=== PATIENT | female | born 1985 | race Caucasian/White ===

== ENCOUNTER 2017-09-17 13:48 | Emergency (ER) | payer SELFPAY ==
[2017-09-17 15:31] LABS: Hematocrit 34 % (35-47); Hemoglobin 11.6 g/dl (12.0-16.0); Mean Corpuscular HGB Conc 34 g/dl (31-36); Mean Corpuscular Hemoglobin 31 pg (27-31); Mean Corpuscular Volume 92 fL (80-97); Mean Platelet Volume 7 um3 (7.4-10.4); Red Blood Count 3.75 10^6/ul (4.0-5.4); Red Cell Distribution Width 13 % (10.5-15); Urine Bilirubin Negative (Negative); Urine Glucose Negative (Negative); Urine Nitrite Negative (Negative); White Blood Count 5.8 10^3/ul (3.5-10.8)
[2017-09-17 15:41] LABS: ALT 45 U/L (7-52); AST 27 U/L (13-39); Alkaline Phosphatase 65 U/L (34-104); Anion Gap 4 mmol/L (2-11); BUN/Creatinine Ratio 12.2 (8-20); Blood Urea Nitrogen 9 mg/dL (6-24); CO2 Carbon Dioxide 26 mmol/L (22-32); Calcium 8.7 mg/dL (8.6-10.3); Chloride 106 mmol/L (101-111); EGFR African American 116.2 (>60); EGFR Non-African American 90.4 (>60); Globulin 2.1 g/dL (2-4); Glucose 86 mg/dL (70-100); Potassium 3.7 mmol/L (3.5-5.0); Sodium 136 mmol/L (133-145); Total Protein 6.1 g/dL (6.4-8.9)
[2017-09-17 15:54] LABS: Alcohol < 10 mg/dL (<10)
[2017-09-17 16:03] LABS: Benzodiazepine Urine Screen None Detected (None Detect)
[2017-09-17] MEDS ORDERED: Ketorolac INJ* 30 MG/ML 1 ML VIAL IV PUSH ONE (16:05)
[2017-09-17] MEDS ORDERED: Metoclopramide IV* 5 MG/ML 2 ML VIAL IV SLOW PU ONE (16:05)
[2017-09-17] MEDS ORDERED: diPHENhydraMINE IV* 50 MG/ML 1 ml VIAL (BENADRYL) SLOW PUSH ONE (16:05)
[2017-09-17 16:24] LABS: TSH (Thyroid Stimulating Horm) 0.82 mcIU/mL (0.34-5.60)
[2017-09-17 16:26] LABS: Free T4 0.85 ng/dL (0.61-1.12)
--- NOTE | 2017-09-17 17:56 | ED ---
Jami Moya Edward, scribed for Erick Gloria MD on 09/17/17 at 1438 . Complex/Multi-Sys Presentation - HPI Summary HPI Summary: 32 y/o female presents to the ED c/o fingers being "pruny" starting yesterday. Pt states she has not showered since Tuesday. She has also drank a lot of fluids in the past day and her "pruny" fingers have gotten slightly better. Pt also c/o of dry mouth. Associated sx: weakness, lightheadedness, fever and gradual onset RIOS starting today consistent with prior migraine RIOS's. PMHx chronic pain, Erick's disease. Sx partial thyroid removal 10 years ago. - History Of Current Complaint Chief Complaint: EDWeakness Hx Obtained From: Patient Onset/Duration: Lasting Days Timing: Constant Associated Signs And Symptoms: Positive: Weakness, Headache, Fever, Other - fingers "pruny", dry mouth, lightheadedness PMH/Surg Hx/FS Hx/Imm Hx Previously Healthy: No Endocrine/Hematology History: Reports: Other Endocrine/Hematological Disorders - Erick's disease Cardiovascular History: Reports: Hx Supraventricular Ventricular Tachycardia Psychiatric History: Reports: Hx Anxiety - Surgical History Surgery Procedure, Year, and Place: partial thyroidectomy Infectious Disease History: No Infectious Disease History: Denies: Traveled Outside the [place] in Last 30 Days - Social History Occupation: Employed Full-time Lives: With Family Review of Systems Positive: Fever. Negative: Chills Negative: Erythema Positive: Other - Dry mouth. Negative: Sore Throat Negative: Chest Pain Negative: Shortness Of Breath, Cough Negative: Abdominal Pain, Vomiting, Nausea Negative: dysuria, hematuria Negative: Myalgia, Edema Positive: Other - Fingers "pruny". Negative: Rash Neurological: Other - Lightheadedness Positive: Headache, Weakness All Other Systems Reviewed And Are Negative: Yes Physical Exam - Summary Physical Exam Summary: Constitutional: Well-developed, Well-nourished, Alert. (-) Distressed Skin: Warm, Dry HENT: Normocephalic; Atraumatic Eyes: Conjunctiva normal Neck: Musculoskeletal ROM normal neck. (-) JVD, (-) Stridor, (-) Tracheal deviation Cardio: Rhythm regular, rate normal, Heart sounds normal; Intact distal pulses; The pedal pulses are 2+ and symmetric. Radial pulses are 2+ and symmetric. (-) Murmur Pulmonary/Chest wall: Effort normal. (-) Respiratory distress, (-) Wheezes, (-) Rales Abd: Soft, (-) Tenderness, (-) Distension, (-) Guarding, (-) Rebound Musculoskeletal: (-) Edema Lymph: (-) Cervical adenopathy Neuro: Alert, Oriented x3 Psych: Mood and affect Normal Triage Information Reviewed: Yes Vital Signs On Initial Exam: Initial Vitals Temp Pulse Resp BP Pulse Ox 98.7 F 86 16 140/88 100 09/17/17 13:51 09/17/17 13:51 09/17/17 13:51 09/17/17 13:51 09/17/17 13:51 Vital Signs Reviewed: Yes Diagnostics - Vital Signs Vital Signs Temp Pulse Resp BP Pulse Ox 09/17/17 13:51 98.7 F 86 16 140/88 100 - Laboratory Result Diagrams: 09/17/17 15:19 09/17/17 15:19 Lab Statement: Any lab studies that have been ordered have been reviewed, and results considered in the medical decision making process. - EKG 1 EKG Interpretation: 14:46 - NSR @ 86 BPM. NO STEMI Re-Evaluation - Re-Evaluation 1 Re-Evaluation Time: 17:40 Change: Improved - RIOS resolved. Pt will be d/c home Complex Multi-Symp Course/Dx Assessment/Plan: 32 y/o female presents to the ED c/o fingers being "pruny" starting yesterday. Pt states she has not showered since Tuesday. She has also drank a lot of fluids in the past day and her "pruny" fingers have gotten slightly better. Pt also c/o of dry mouth. Associated sx: weakness, lightheadedness, fever and gradual onset RIOS starting today consistent with prior migraine RIOS's. PMHx chronic pain, Erick's disease. Sx partial thyroid removal 10 years ago. EKG 14:46 - NSR @ 86 BPM. NO STEMI. On re-eval the pt's RIOS resolved. The pt will be d/c home with f/u with PCP. - Diagnoses Provider Diagnoses: Raynaud's disease, Migraine headache Discharge - Discharge Plan Condition: Stable Disposition: HOME Patient Education Materials: Raynaud Disease (ED), Migraine Headache (ED) Referrals: Jared Villagran MD [Primary Care Provider] - 4 Days (PLEASE F/U IN 3-5 DAYS) The documentation as recorded by the Jami carvalho Edward accurately reflects the service I personally performed and the decisions made by me, Erick Gloria MD.
[2017-09-17 17:59] VITALS: BP 98/46
== END 2017-09-17 17:59 | disposition home or self-care (01) ==
LOC: ED 13:48
DX: I73.00 Raynaud's syndrome without gangrene (principal); G43.909 Migraine, unspecified, not intractable, without status migrainosus; R53.1 Weakness; R51 Headache; R50.9 Fever, unspecified
CPT/HCPCS: 36415; 80053; 80307; 80320; 81003; 82140; 83605; 84439; 84443; 85025; 93005; 96374; 96375; 99284; G0480; J1200; J1885; J2765